=== PATIENT | male | born 1995 | race Two or more races ===

== ENCOUNTER 2016-11-18 05:30 | Emergency (ER) | payer OTHER ==
[~2016-11-18] VITALS: Ht 190.5 cm; Wt 98.0 kg
[~2016-11-18 05:30] MED LIST: FOCALIN XR10 MG PO; FOCALIN XR20 MG PO; FOCALIN10 MG PO; TRAZODONE HCL50 MG PO
[2016-11-18 06:28] LABS: EOSINOPHIL (%) 0 % (0-5); HEMATOCRIT 44.3 % (38.0-50.0); IMMATURE GRANULOCYTE (%) 0.4 % (0.0-0.7); IMMATURE GRANULOCYTE COUNT 0.1 K/uL; INSTRUMENT ABS NEUTROPHIL CT 9.8 K/uL; MCH 31.6 PG (29.0-34.0); MCHC 34.8 G/DL (30.0-36.0); MCV 90.8 FL (86-99); MEAN PLAT.VOLUME 9.9 uM^3 (9.0-12.4); MONOCYTE (%) 5.2 % (3-12); MONOCYTE COUNT 0.6 K/uL (0-0.8); NEUTROPHIL (%) 85.4 % (45-76); NEUTROPHIL COUNT 9.8 K/uL (1.8-6.4); PLATELET COUNT 219 K/uL (156-360); RBC DIS.WIDTH-CV 12.3 % (11.8-14.6); RED BLOOD COUNT 4.88 M/uL (4.00-5.50); WHITE BLOOD COUNT 11.5 K/uL (4.1-10.2)
[2016-11-18 06:38] LABS: CHLORIDE 104 mEq/L (99-109); POTASSIUM 3.7 mEq/L (3.7-5.4); SODIUM 138 mEq/L (136-147)
[2016-11-18 06:39] LABS: GLUCOSE 104 mg/dL (70-99)
[2016-11-18 06:41] LABS: ANION GAP 11 MEQ/L (2-14)
[2016-11-18 06:43] LABS: GFR ESTIMATE (CALCULATED) > 59 mL/min/
[2016-11-18 06:44] LABS: UREA NITROGEN (BUN) 17 mg/dL (9-23)
[2016-11-18 07:36] LABS: ADD MIUA? NO; BILIRUBIN NEGATIVE; BLOOD NEGATIVE; COLOR YELLOW ((YELLOW)); GLUCOSE (STRIP) NEGATIVE; KETONES 5; LEUKOCYTES NEGATIVE; NITRITE NEGATIVE; PROTEIN (STRIP) NEGATIVE; SPECIFIC GRAVITY 1.018 (1.000-1.030); UROBILINOGEN 0.2 MG/DL (0.2-1.0)
[2016-11-18] MEDS ORDERED: MOTRIN800 MG PO (08:52)
[2016-11-18 09:01] VITALS: BP 114/67
== END 2016-11-18 09:00 | disposition home or self-care (01) ==
LOC: EME 05:30
PROVIDERS: Emergency Medicine
DX: S20.219A Contusion of unspecified front wall of thorax, initial encounter (principal); S80.00XA Contusion of unspecified knee, initial encounter; S00.83XA Contusion of other part of head, initial encounter; V47.5XXA Car driver injured in collision with fixed or stationary object in traffic accident, initial encounter; Y92.410 Unspecified street and highway as the place of occurrence of the external cause; M51.26 Other intervertebral disc displacement, lumbar region
CPT/HCPCS: 70450; 70486; 71260; 72125; 72129; 72132; 74177; 80048; 81003; 85025; 99281; 99285; J1885; J2405; J7030

== ENCOUNTER 2017-07-04 12:45 | Emergency (ER) | payer OTHER ==
[~2017-07-04] VITALS: Ht 190.5 cm; Wt 106.6 kg
[~2017-07-04 12:45] MED LIST changes: +MOTRIN800 MG PO
[2017-07-04] MEDS ORDERED: SKELAXIN800 MG PO (16:49)
[2017-07-04] MEDS ORDERED: PERCOCET 5/31 TABLET PO (16:49)
[2017-07-04] MEDS ORDERED: NAPROXEN500 MG PO (16:49)
[2017-07-04 16:59] VITALS: BP 125/60
== END 2017-07-04 17:00 | disposition home or self-care (01) ==
LOC: EME 12:45
DX: S39.012A Strain of muscle, fascia and tendon of lower back, initial encounter (principal); M54.16 Radiculopathy, lumbar region; Y93.23 Activity, snow (alpine) (downhill) skiing, snowboarding, sledding, tobogganing and snow tubing; Y92.39 Other specified sports and athletic area as the place of occurrence of the external cause
CPT/HCPCS: 72100; 99281; 99284